=== PATIENT | female | born 1995 ===

== ENCOUNTER 2019-06-08 13:36 | Emergency (ER) | payer OTHER ==
[~2019-06-08] VITALS: Ht 157.5 cm; Wt 124.4 kg
--- NOTE | 2019-06-08 13:45 | NUR ---
NIL X 1@ [id number]
[2019-06-08 13:54] VITALS: BP 134/72
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
[2019-06-08] MEDS ORDERED: IBUPROFEN 200 MG TABLET ONE (14:49)
[2019-06-08] MEDS ORDERED: DIPH,PERTUSS(ACELL),TET VAC/PF 0.5 ML IM-VACC ONE ×2 (14:49→15:00)
[2019-06-08] MEDS ORDERED: IBUPROFEN 200 MG TABLET PO ONE (15:00)
--- NOTE | 2019-06-08 15:29 | NUR ---
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
--- NOTE | 2019-06-08 15:40 | NUR ---
DISCHARGE INSTRUCTIONS REVIEWED
== END 2019-06-08 15:47 | disposition home or self-care (01) ==
LOC: ED 15:20
DX: S61.551A Open bite of right wrist, initial encounter (principal); F15.10 Other stimulant abuse, uncomplicated; Y04.1XXA Assault by human bite, initial encounter; Y93.89 Activity, other specified; Y92.098 Other place in other non-institutional residence as the place of occurrence of the external cause; Y99.8 Other external cause status
CPT/HCPCS: 90471; 90715; 99283